=== PATIENT | female | born 1955 | race Two or more races ===

== ENCOUNTER 2020-06-13 09:15 | Inpatient (IN) | payer OTHER ==
[~2020-06-13] VITALS: Ht 165.1 cm; Wt 63.5 kg
[2020-06-15] MEDS ORDERED: HYZAAR 100-251 EACH PO (13:30)
[2020-06-15] MEDS ORDERED: TRILIPIX135 MG PO (13:31)
[2020-06-15] MEDS ORDERED: TOPROL XL25 MG PO (13:31)
[2020-06-15] MEDS ORDERED: LIPIT PO (13:31)
[2020-06-15] MEDS ORDERED: SYNTHROID175 MCG PO (13:32)
[2020-06-20] MEDS ORDERED: ATORVASTATIN CA10 MG PO (14:24)
== END 2020-06-23 12:45 | disposition home or self-care (01) | DRG 331 ==
LOC: SURH 06-20 07:00 → O/R 06-20 09:00 → SURG 06-20 09:06 → O/R 06-20 09:06 → SURG 06-20 20:18
PROVIDERS: ADMIT Colon & Rectal Surgery; ATTEND Colon & Rectal Surgery
PROC: 0DBN4ZZ Excision of Sigmoid Colon, Percutaneous Endoscopic Approach (ICD-10-PCS; 2020-06-20)
PROC: 0DTP4ZZ Resection of Rectum, Percutaneous Endoscopic Approach (ICD-10-PCS; principal; 2020-06-20 07:00)
PROC: 30233N1 Transfusion of Nonautologous Red Blood Cells into Peripheral Vein, Percutaneous Approach (ICD-10-PCS; 2020-06-21)
DX: K57.30 Diverticulosis of large intestine without perforation or abscess without bleeding (principal); I11.9 Hypertensive heart disease without heart failure; E03.9 Hypothyroidism, unspecified; E78.00 Pure hypercholesterolemia, unspecified; D64.9 Anemia, unspecified

== ENCOUNTER 2021-09-07 07:21 | Day surgery (SDC) | payer OTHER ==
[~2021-09-07 07:21] MED LIST: ATORVASTATIN CA10 MG PO; HYZAAR 100-251 EACH PO; LIPIT PO; SYNTHROID175 MCG PO; TOPROL XL25 MG PO; TRILIPIX135 MG PO
== END 2021-09-07 11:05 | disposition home or self-care (01) ==
LOC: AMB-ENDOS 07:21
PROVIDERS: ATTEND Colon & Rectal Surgery
DX: K57.32 Diverticulitis of large intestine without perforation or abscess without bleeding (principal); K64.0 First degree hemorrhoids; Z20.822 Contact with and (suspected) exposure to COVID-19